=== PATIENT | female | born 1970 | race Caucasian/White ===

== ENCOUNTER 2019-03-25 17:51 | Emergency (ER) | payer OTHER ==
[~2019-03-25] VITALS: Ht 167.6 cm; Wt 77.1 kg
[2019-03-25 17:51] VITALS: BP 119/56
[2019-03-25] MEDS ORDERED: NORFLEX100 MG PO (18:30)
[2019-03-25] MEDS ORDERED: NAPROSYN500 MG PO (18:30)
== END 2019-03-25 18:30 | disposition home or self-care (01) ==
LOC: ER 17:51
DX: S46.811A Strain of other muscles, fascia and tendons at shoulder and upper arm level, right arm, initial encounter (principal); S80.02XA Contusion of left knee, initial encounter; S80.01XA Contusion of right knee, initial encounter; V89.2XXA Person injured in unspecified motor-vehicle accident, traffic, initial encounter; Y93.89 Activity, other specified; Y92.488 Other paved roadways as the place of occurrence of the external cause; Y99.8 Other external cause status